=== PATIENT | male | born 1995 | race Caucasian/White ===

== ENCOUNTER 2022-07-21 13:45 | Outpatient (CLI) | payer OTHER | END 2022-07-21 14:02 | disposition home or self-care (01) | LOC: RAD 13:45 | DX: M99.01 Segmental and somatic dysfunction of cervical region (principal); M99.02 Segmental and somatic dysfunction of thoracic region; M99.03 Segmental and somatic dysfunction of lumbar region; M99.04 Segmental and somatic dysfunction of sacral region; M99.05 Segmental and somatic dysfunction of pelvic region ==